=== PATIENT | female | born 1975 | race Caucasian/White ===

== ENCOUNTER 2019-01-18 10:14 | Inpatient (IN) ==
[2019-01-18] MEDS ORDERED: BENTYL PO PRN (17:13)
[2019-01-18] MEDS ORDERED: D5W 1,000 ML IV PRN (17:13)
[2019-01-18] MEDS ORDERED: DESYREL PO PRN (17:13)
[2019-01-18] MEDS ORDERED: LIBRIUM PO PRN (17:13)
[2019-01-18] MEDS ORDERED: SEROQUEL PO PRN (17:13)
[2019-01-18] MEDS ORDERED: MAALOX PLUS LIQUID PO PRN (17:13)
[2019-01-18] MEDS ORDERED: IMODIUM PO PRN (17:13)
[2019-01-18] MEDS ORDERED: PHENOBARBITAL IV PRN (17:13)
[2019-01-18] MEDS ORDERED: SENOKOT PO PRN (17:13)
[2019-01-18] MEDS ORDERED: ZOFRAN IV PRN (17:13)
[2019-01-18] MEDS ORDERED: DULCOLAX PR PRN (17:13)
[2019-01-18] MEDS ORDERED: SUBOXONE 2 MG/0.5 MG FILM SL SCH ×2 (17:15→20:15)
[2019-01-18] MEDS: TUBERSOL ID ONE (18:23)
[2019-01-18 18:24] LABS: UR AMPHETAMINES QUAL PRESUMPTIVE POSITIVE (NONE DETECT); UR BARBITUATES QUAL NONE DETECTED (NONE DETECT); UR BENZODIAZEPIN QUAL PRESUMPTIVE POSITIVE (NONE DETECT); UR CANNABINOIDS QUAL NONE DETECTED (NONE DETECT); UR COCAINE QUAL NONE DETECTED (NONE DETECT); UR METHADONE QUAL NONE DETECTED (NONE DETECT); UR METHAMPHETAMINE QUAL NONE DETECTED (NONE DETECT); UR OPIATES QUAL NONE DETECTED (NONE DETECT); UR OXYCODONE QUAL NONE DETECTED (NONE DETECT); UR PCP QUAL NONE DETECTED (NONE DETECT); UR PROPOXYPHENE QUAL NONE DETECTED (NONE DETECT); UR TCA QUAL NONE DETECTED (NONE DETECT)
[2019-01-18 18:30] LABS: INR 0.98; PROTIME 13.5 Seconds (11.0-16.0)
[2019-01-18 18:39] LABS: AMYLASE 31 U/L (20-200); LIPASE 20 U/L (13-60)
[2019-01-18 18:41] LABS: HEMATOCRIT 35.6 % (37.0-47.0); HEMOGLOBIN 12.7 g/dL (12.0-16.0); MCH 30.9 PG (27-31); MCHC 35.7 g/dL (33-37); MCV 86.6 FL (81-99); MPV 9.9 FL (7.4-10.4); RBC 4.11 XMIL (4.2-5.4); RDW 13.1 % (11.5-14.5); WBC 5.85 X1000 (4.8-10.8)
[2019-01-18 18:43] LABS: AGAP 10; ALKALINE PHOSPHATASE 69 U/L (32-104); BUN 9 mg/dL (8-22); CALCIUM 8.8 mg/dL (8.8-10.2); CHLORIDE 106 mmol/L (98-107); COSMO 278; CREATININE 0.5 mg/dL (0.5-0.9); ESTIMATED GFR > 60; GLUCOSE 103 mg/dL (70-104); GOT 229 U/L (10-30); GPT 240 U/L (10-36); POTASSIUM 3.7 mmol/L (3.5-5.1); SODIUM 140 mmol/L (136-145); TCO2 25 mmol/L (25-35); TOTAL PROTEIN 6.9 g/dL (6.3-8.3)
[2019-01-18] MEDS: NICODERM PATCH TD PRN (20:17)
[2019-01-18] MEDS: ATARAX PO PRN (23:02)
[2019-01-19 04:08] LABS: URINE SOURCE CLEAN CATCH
[2019-01-19 04:44] LABS: BILIRUBIN URINE NEGATIVE (NEGATIVE); BLOOD URINE NEGATIVE (NEGATIVE); CLARITY SL. CLOUDY (CLEAR); COLOR YELLOW; GLUCOSE URINE NEGATIVE (NEGATIVE); KETONE URINE NEGATIVE (NEGATIVE); LEUKOCYTES URINE TRACE (NEGATIVE); NITRITE URINE NEGATIVE (NEGATIVE); PROTEIN URINE NEGATIVE (NEGATIVE); SP GRAVITY URINE 1.005; UROBILINOGEN URINE NORMAL
[2019-01-19 04:45] LABS: URINE BACTERIA NEGATIVE /HFP; URINE EPITHELIAL CELLS <10 /HPF (<10); URINE RBC <10 /HPF (<10); URINE WBC <10 /HPF (<10)
[2019-01-19] MEDS: PROTONIX PO SCH (06:15)
--- NOTE | 2019-01-19 08:17 | HISTORY AND PHYSICAL ---
CHIEF COMPLAINT: Nausea and vomiting. HISTORY OF PRESENT ILLNESS.: The patient is a 43-year-old female who presented to [facility] secondary to opiate abuse and withdrawal. She does note that she had done well on Suboxone in the past, but had missed an appointment due to financial issues. She states she used all of her money for her probation. SOCIAL HISTORY: Patient is a . She is on disability. She lives at home in [place]. PAST MEDICAL HISTORY: Positive for chronic arthritis. She has had 3 ruptured disks in her back. Chronic anxiety, bipolar, and PTSD. She had a history of seizures in 2017 that was felt to be substance abuse related. MEDICATIONS: She is on no current medications. ALLERGIES: No known drug allergies. REVIEW OF SYSTEMS: CINA score is elevated at 13 secondary to nausea, vomiting, abdominal pain, frequent hot and cold chills, paroxysmal sweating, runny nose, watery eyes, and has not been sleeping well. She feels as though her skin has been crawling. She has had abdominal pain and decreased oral intake. Denies any cough, congestion or other upper respiratory type symptoms. Denies any dysuria, frequency, urgency, constipation, melena, or hematochezia. SUBSTANCE ABUSE HISTORY: The patient was in long term in 2017 for 34 days due to substance abuse. She was in [facility] in 2019, and had done very well. She was dismissed due to missing an appointment. She has had legal, social and emotional issues due to her substance use history. She started smoking marijuana at age 13. Currently, she smokes a couple of times a week. Started stimulants at 13, and had been using occasionally since she has not been able to get opiates. She started opiates at age 18. She had been abusing morphine and OxyContin. She had actually been stable on Suboxone, but since she has not been on Suboxone she has gone back to abuse. FAMILY HISTORY: Noncontributory. PHYSICAL EXAMINATION: VITAL SIGNS: Reviewed and stable. GENERAL: She is awake and alert. She is in no current respiratory distress. She is somewhat ill- appearing due to withdrawal symptoms, fidgety, and moving about. HEENT: Normocephalic and atraumatic. NECK: Supple. CARDIOVASCULAR: Regular rate. CHEST: Clear and nonlabored. ABDOMEN: Soft and nondistended. EXTREMITIES: Moves all extremities. ASSESSMENT: 1. Nausea and vomiting. 2. Abdominal pain. 3. Myalgias. 4. Paresthesias. 5. Paroxysmal sweating 6. Chronic anxiety and depression. 7. Opiate abuse withdrawal and stabilization. PLAN: We will admit patient to [facility]. We will start her on Suboxone and begin counseling. We will adjust medication assisted therapy as needed. cc: Harjinder Boogie MD
[2019-01-19] MEDS ORDERED: SUBOXONE 2 MG/0.5 MG FILM SL ONE (08:47)
[2019-01-19] MEDS: VITAMIN B-1 PO SCH (09:12)
[2019-01-19] MEDS: FOLIC ACID PO SCH (09:12)
[2019-01-19] MEDS: THERA M PLUS PO SCH (09:12)
[2019-01-19] MEDS: ATARAX PO PRN ×2 (11:58→20:29)
[2019-01-19] MEDS: NICODERM PATCH TD PRN (11:58)
[2019-01-19] MEDS: MOTRIN PO PRN (17:32)
[2019-01-19] MEDS: TUBERSOL ID ONE (18:35)
[2019-01-19] MEDS: ROBAXIN PO PRN (20:29)
[2019-01-19] MEDS: SINEMET 25/100 PO PRN (20:29)
[2019-01-19] MEDS: SUBOXONE 8 MG/2 MG FILM SL SCH (20:29)
--- NOTE | 2019-01-19 21:38 | PROGRESS NOTE ---
DATE: 01/19/2019 SUBJECTIVE: Patient notes that overall she is starting to feel a little bit better. Denies any dysuria or urinary frequency. Denies any chest pain or palpitations. States her muscle aches are improving. OBJECTIVE/PHYSICAL EXAM: Vital Signs: Temperature 97, pulse 96, respiratory 18, BP 116/75. General: The patient is awake, currently in no distress. Pleasant to talk with. HEENT: Normocephalic. Neck: Supple. Cardiovascular: Regular rate. Chest: Clear. Abdomen: Soft. Extremities: Moves all extremities. ASSESSMENT: 1. Nausea and vomiting. 2. Abdominal pain. 3. Myalgias. 4. Paresthesias. 5. Paroxysmal sweating. 6. Opiate abuse withdrawal and stabilization. PLAN: We will continue patient in the hospital and continue counseling. Continue Suboxone. Further orders as needed. cc: Harjinder Boogie MD
[2019-01-20] MEDS: PROTONIX PO SCH (06:08)
[2019-01-20] MEDS: THERA M PLUS PO SCH (09:14)
[2019-01-20] MEDS: MOTRIN PO PRN (09:14)
[2019-01-20] MEDS: FOLIC ACID PO SCH (09:14)
[2019-01-20] MEDS: VITAMIN B-1 PO SCH (09:14)
[2019-01-20] MEDS: SUBOXONE 8 MG/2 MG FILM SL SCH ×2 (09:15→20:38)
[2019-01-20] MEDS: NICODERM PATCH TD PRN (11:21)
[2019-01-20] MEDS: ZOFRAN ODT PO PRN (16:24)
[2019-01-20] MEDS: TYLENOL PO PRN (19:10)
--- NOTE | 2019-01-20 23:33 | PROGRESS NOTE ---
DATE: 01/20/2019 SUBJECTIVE: Patient notes she is feeling better. Denies any fevers. Denies any chills. PHYSICAL EXAMINATION: Vital Signs: Reviewed. Temperature 98 degrees, pulse 88, respiratory 18, BP 122/71. General: Patient notes she feels better. She is in no distress. HEENT: Normocephalic. Neck: Supple. Cardiovascular: Regular rate. No murmurs. Chest: Clear and nonlabored. Abdomen: Soft. Extremities: Moves all extremities. ASSESSMENT: 1. Nausea, vomiting. 2. Abdominal pain. 3. Myalgias. 4. Paresthesias. 5. Opiate abuse, withdrawal and stabilization. 6. Chronic bipolar with anxiety. 7. Posttraumatic stress disorder. PLAN: We will continue patient in the hospital. Hopefully she can discharge home later this afternoon or certainly by tomorrow if her symptoms continue to improve. We will continue counseling. Further orders as needed. cc: Harjinder Boogie MD
[2019-01-21] MEDS: ATARAX PO PRN (00:46)
[2019-01-21] MEDS: SINEMET 25/100 PO PRN (00:49)
[2019-01-21] MEDS: PROTONIX PO SCH (06:18)
[2019-01-21] MEDS: FOLIC ACID PO SCH (09:10)
[2019-01-21] MEDS: VITAMIN B-1 PO SCH (09:10)
[2019-01-21] MEDS: SUBOXONE 8 MG/2 MG FILM SL SCH ×2 (09:10→20:22)
[2019-01-21] MEDS: THERA M PLUS PO SCH (09:10)
[2019-01-21] MEDS: NICODERM PATCH TD PRN (14:34)
[2019-01-21] MEDS: ZOFRAN ODT PO PRN (19:26)
[2019-01-21] MEDS: ROBAXIN PO PRN (20:26)
[2019-01-21] MEDS: MOTRIN PO PRN (20:26)
--- NOTE | 2019-01-21 22:20 | PROGRESS NOTE ---
DATE: 01/21/2019 SUBJECTIVE: Patient states she is feeling a little bit better. She still feels weak and fatigued. PHYSICAL EXAMINATION: Vital Signs: Reviewed. She is awake, alert. She is in no distress. She is afebrile. Pulse in the 80s. Blood pressure stable. General: Patient is in no current respiratory distress. She is still somewhat ill-appearing and still appears generally weak. No focal weakness. No numbness. HEENT: Normocephalic. Neck: Supple. Cardiovascular: Regular rate. Chest: Clear. Abdomen: Soft. Extremities: Moves all extremities. ASSESSMENT: 1. Nausea and vomiting. 2. Abdominal pain. 3. Myalgias. 4. Paresthesias. 5. Paroxysmal sweating. 6. Opiate abuse withdrawal and stabilization. PLAN: We will continue patient in the hospital and continue to follow. Hopefully, she can discharge home later this afternoon if she begins getting a little stronger. We will continue counseling and will follow. cc: Harjinder Boogie MD
[2019-01-22] MEDS: PROTONIX PO SCH (06:14)
[2019-01-22] MEDS: FOLIC ACID PO SCH (08:34)
[2019-01-22] MEDS: VITAMIN B-1 PO SCH (08:34)
[2019-01-22] MEDS: THERA M PLUS PO SCH (08:34)
[2019-01-22] MEDS: SUBOXONE 8 MG/2 MG FILM SL SCH (08:34)
[2019-01-22] MEDS: TYLENOL PO PRN (08:35)
[2019-01-22 10:17] VITALS: BP 108/58
== END 2019-01-22 14:33 | disposition home or self-care (01) | DRG 897 ==
LOC: P.DIRADM 14:40 → P.MEDSURG 14:45
PROVIDERS: ADMIT Family Medicine; ATTEND Family Medicine
CPT/HCPCS: 80053; 80104; 80301; 80305; 80307; 80320; 81001; 82055; 82150; 83690; 84703; 85027; 85610; A9270; G0431; G0434; G0477; G0480; G6040